=== PATIENT | male | born 1945 | race Caucasian/White ===

== ENCOUNTER 2017-02-08 18:03 | Inpatient (IN) | payer MEDICARE ==
[~2017-02-08] VITALS: Ht 180.3 cm; Wt 127.1 kg
[~2017-02-08 18:03] MED LIST: ALBU8.5H3 INH; AMLO5TAB2 PO; ASPI-496 PO; ATOR40TA78 PO; ESCI20TA PO; FLUT16SP NAS; GABA-827 PO; ISOS30TA8 PO; LISI1TAB7 PO; METF500T4 PO; NITR0.4T8 SL; PRAS10TA4 PO; TICA90TA PO; ZOLP10TA PO; ZOLP10TA5 PO
[2017-02-08] MEDS ORDERED: MORPHINE SULFATE 4 MG/ML, 1ML ONE (18:54)
[2017-02-08] MEDS ORDERED: ASPIRIN 81 MG TABLET CHEW ONE (18:55)
[2017-02-08] MEDS ORDERED: NITROGLYCERIN OINT 2%, 1GM TP ONE ×2 (18:55→19:00)
[2017-02-08] MEDS ORDERED: ONDANSETRON 2MG/ML, 2ML ONE (18:55)
[2017-02-08] MEDS: ASPIRIN 81 MG TABLET CHEW PO ONE ×2 (18:59→19:00)
[2017-02-08] MEDS ORDERED: MORPHINE SULFATE 4 MG/ML, 1ML IVPush PRN ×2 (19:00→20:30)
[2017-02-08] MEDS ORDERED: ONDANSETRON 2MG/ML, 2ML IVPush ONE (19:00)
[2017-02-08] MEDS ORDERED: SODIUM CHLORIDE FLUSH 10ML SYR IVF ONE (19:00)
[2017-02-08 19:12] LABS: ASPARTATE AMINO TRANSFERASE 46 U/L (15-37); BLOOD UREA NITROGEN 15 mg/dL (7-18)
[2017-02-08 19:18] LABS: IS PT STATUS REG ER OR PRE ER? YES
[2017-02-08] MEDS ORDERED: PRAS10TA4 PO (19:27)
[2017-02-08] MEDS ORDERED: ZOLPIDEM 10MG TABLET PO PRN (20:30)
[2017-02-08] MEDS ORDERED: ACETAMINOPHEN 325 MG TABLET PO PRN (20:30)
[2017-02-08] MEDS ORDERED: BISACODYL 10 MG SUPP PR PRN (20:30)
[2017-02-08] MEDS ORDERED: ONDANSETRON 2MG/ML, 2ML IVP PRN (20:30)
[2017-02-08] MEDS ORDERED: NITROGLYCERIN 0.4 MG BOTTLE (25 TABS) SL PRN (20:30)
[2017-02-08] MEDS ORDERED: SODIUM CHLORIDE FLUSH 10ML SYR IVF SCH (21:00)
[2017-02-08] MEDS ORDERED: AMLODIPINE 5 MG TABLET PO SCH (21:00)
[2017-02-08] MEDS ORDERED: metFORMIN 500 MG TABLET PO SCH (21:00)
[2017-02-08 21:53] VITALS: BP 166/69
[2017-02-08] MEDS ORDERED: HEPARIN 5,000 UNITS/ML, 1ML IV ONE (22:30)
[2017-02-08] MEDS ORDERED: HEPARIN 5,000 UNITS/ML, 1ML IV PRN (22:30)
[2017-02-08] MEDS ORDERED: HEPARIN 25,000 UNITS/500ML PMX 500 ML IV PRN ×2 (22:30)
[2017-02-08] MEDS ORDERED: NITROGLYCERIN/D5W PMX 250 ML IV PRN (22:30)
[2017-02-08 22:43] VITALS: BP 136/59
[2017-02-08] MEDS ORDERED: ZOLPIDEM 5MG TABLET ONE (23:22)
[2017-02-08] MEDS ORDERED: LORATADINE 10 MG TABLET PO ONE (23:30)
[2017-02-09] MEDS: ATORVASTATIN 80 MG TABLET PO SCH ×2 (00:04→21:28)
[2017-02-09] MEDS: GABAPENTIN 400 MG CAPSULE PO SCH ×3 (00:04→21:28)
[2017-02-09] MEDS ORDERED: DO NOT GIVE MC SCH (00:30)
[2017-02-09] MEDS ORDERED: CHLORHEXIDINE MOUTHWASH 15 ML UDC MM SCH (00:30)
[2017-02-09] MEDS ORDERED: ALBUMIN HUMAN 5% 500 ML IV ONE (00:30)
[2017-02-09 01:28] LABS: IS PT STATUS REG ER OR PRE ER? NO
[2017-02-09] MEDS: ALBUTEROL/IPRATROPIUM 2.5MG/0.5MG, 3 ML NPPB PRN (03:10)
[2017-02-09] MEDS ORDERED: ALBUTEROL/IPRATROPIUM 2.5MG/0.5MG, 3 ML ONE (03:16)
[2017-02-09 05:00] VITALS: BP_SYST 128; BP_SYST 131; BP_DIAS 59; BP_DIAS 62
[2017-02-09] MEDS ORDERED: METOPROLOL TARTRATE 25 MG TABLET PO ONE (05:00)
[2017-02-09] MEDS: MUPIROCIN OINT 2%, 22GM TP SCH ×2 (05:11→21:28)
[2017-02-09] MEDS: INSULIN ASPART 100 UNITS/ML, PEN SQ-INSULIN SCH (05:35)
[2017-02-09] MEDS ORDERED: ALBUTEROL/IPRATROPIUM 2.5MG/0.5MG, 3 ML NPPB SCH (07:00)
[2017-02-09] MEDS ORDERED: MIDAZOLAM 10MG/2 ML ONE (07:10)
[2017-02-09] MEDS ORDERED: FENTANYL PF 1000 MCG/20ML ONE (07:10)
[2017-02-09] MEDS ORDERED: POTASSIUM CHLORIDE 80 MEQ, SODIUM BICARBONATE 8.4% 10 MEQ, MAGNESIUM SULFATE 0.5 GM, LI... IV PRN (07:30)
[2017-02-09] MEDS ORDERED: REGULAR INSULIN 62.5 UNITS in SODIUM CHLORIDE 0.9% 249.375 ML IV PRN (07:30)
[2017-02-09] MEDS ORDERED: VANCOMYCIN 1,800 MG in SODIUM CHLORIDE 0.9% 250 ML IV PRN (07:30)
[2017-02-09] MEDS ORDERED: DEXMEDETOMIDINE 200 MCG in SODIUM CHLORIDE 0.9% 48 ML IV SCH (07:30)
[2017-02-09] MEDS ORDERED: CEFUROXIME 1.5 GM in SODIUM CHLORIDE 0.9% 50 ML IVPB PRN (07:30)
[2017-02-09] MEDS ORDERED: PHENYLEPHRINE 10 MG in SODIUM CHLORIDE 0.9% 249 ML IV PRN (07:30)
[2017-02-09] MEDS ORDERED: EPINEPHRINE 2 MG in SODIUM CHLORIDE 0.9% 248 ML IV SCH (07:30)
[2017-02-09] MEDS ORDERED: MANNITOL PMX 20% 500 ML IVPB PRN (07:30)
[2017-02-09 07:31] LABS: ASPARTATE AMINO TRANSFERASE 55 U/L (15-37); BLOOD UREA NITROGEN 13 mg/dL (7-18)
[2017-02-09 07:40] LABS: IS PT STATUS REG ER OR PRE ER? NO
[2017-02-09] MEDS ORDERED: PRASUGREL 10 MG TABLET PO SCH (09:00)
[2017-02-09] MEDS ORDERED: SODIUM CHLORIDE FLUSH 10ML SYR IVF SCH (09:00)
[2017-02-09] MEDS ORDERED: HYDROCHLOROTHIAZIDE 25 MG TABLET PO SCH (09:00)
[2017-02-09] MEDS: CITALOPRAM 20 MG TABLET PO SCH (09:00)
[2017-02-09] MEDS ORDERED: ASPIRIN 81 MG TABLET EC PO SCH (09:00)
[2017-02-09] MEDS ORDERED: LISINOPRIL 20 MG TABLET PO SCH (09:00)
[2017-02-09] MEDS ORDERED: ISOSORBIDE MONONITRATE ER 30 MG TABLET PO SCH (09:00)
[2017-02-09] MEDS ORDERED: DESMOPRESSIN 28 MCG in SODIUM CHLORIDE 0.9% 50 ML IVPB ONE (11:30)
[2017-02-09] MEDS ORDERED: PROTAMINE SULFATE 10 MG/ML, 25ML ONE (11:49)
[2017-02-09] MEDS ORDERED: CALCIUM CHLORIDE 10%, 10ML SYR ONE (11:49)
[2017-02-09] MEDS ORDERED: PAPAVERINE 30 MG/ML, 2ML ONE (11:50)
[2017-02-09] MEDS ORDERED: AMINOCAPROIC ACID 250 MG/ML, 20ML ONE (11:50)
[2017-02-09] MEDS ORDERED: SODIUM BICARBONATE 1 MEQ/ML, 50ML VIAL ONE (11:50)
[2017-02-09] MEDS ORDERED: ALBUMIN HUMAN 25% 50 ML ONE (11:50)
[2017-02-09] MEDS ORDERED: HEPARIN 1,000 UNITS/ML, 30ML ONE (11:50)
[2017-02-09] MEDS ORDERED: LIDOCAINE 2% 100MG/5ML SYRINGE ONE (11:50)
[2017-02-09] MEDS ORDERED: DOBUTAMINE 250 MG in SODIUM CHLORIDE 0.9% 230 ML IV PRN (12:17)
[2017-02-09] MEDS ORDERED: SODIUM CHLORIDE 0.9% 1,000 ML IV ONE (12:17)
[2017-02-09] MEDS ORDERED: SODIUM CHLORIDE 0.9% 1,000 ML IV PRN (12:17)
[2017-02-09] MEDS ORDERED: NITROGLYCERIN/D5W PMX 250 ML IV PRN (12:17)
[2017-02-09] MEDS ORDERED: CLEVIDIPINE 50 ML IV PRN (12:17)
[2017-02-09] MEDS ORDERED: ACETAMINOPHEN 325 MG TABLET PO PRN (12:30)
[2017-02-09] MEDS ORDERED: BISACODYL 5 MG EC TABLET PO PRN (12:30)
[2017-02-09] MEDS ORDERED: SODIUM BICARB 8.4%, 50ML SYRINGE IV PRN (12:30)
[2017-02-09] MEDS ORDERED: MEPERIDINE/PF 25MG/0.5ML IVPush PRN (12:30)
[2017-02-09] MEDS ORDERED: BISACODYL 10 MG SUPP PR PRN (12:30)
[2017-02-09] MEDS ORDERED: morphine SULFATE 10 MG/ML, 1ML IVPush PRN (12:30)
[2017-02-09] MEDS ORDERED: PROCHLORPERAZINE 5 MG/ML, 2ML IVPush PRN (12:30)
[2017-02-09] MEDS ORDERED: ACETAMINOPHEN 650 MG SUPP PR PRN (12:30)
[2017-02-09] MEDS: KSCALE TO 4.5 IV SCH ×2 (12:30→18:30)
[2017-02-09] MEDS ORDERED: DEXTROSE 4 GM TAB.CHEW PO PRN (12:30)
[2017-02-09] MEDS ORDERED: DEXTROSE 50%, 50ML SYRINGE IVPush PRN (12:30)
[2017-02-09] MEDS ORDERED: MIDAZOLAM 1 MG/ML, 5ML IVPush PRN (12:30)
[2017-02-09] MEDS ORDERED: LACTATED RINGERS 500 ML IVBOLUS PRN (12:30)
[2017-02-09] MEDS ORDERED: GLUCAGON 1 MG IM PRN (12:30)
[2017-02-09 12:45] LABS: ABG COLLECTION SITE ARTERIAL LINE; FIO2 60 %
[2017-02-09] MEDS: MAGNESIUM SULFATE 1 GM in SODIUM CHLORIDE 0.9% 50 ML IVPB SCH (13:40)
[2017-02-09] MEDS: SODIUM BICARBONATE 1 MEQ/ML, 50ML VIAL IV PRN ×3 (14:05→17:12)
[2017-02-09] MEDS: DEXMEDETOMIDINE 200 MCG in SODIUM CHLORIDE 0.9% 48 ML IV PRN ×2 (15:06→17:52)
[2017-02-09 16:47] LABS: ABG COLLECTION SITE ARTERIAL LINE
[2017-02-09] MEDS: PHENYLEPHRINE 10 MG in SODIUM CHLORIDE 0.9% 249 ML IV PRN ×2 (17:12→21:57)
[2017-02-09 17:46] LABS: ABG COLLECTION SITE ARTERIAL LINE
[2017-02-09] MEDS: OXYcodone IR 5MG TABLET PO PRN (17:50)
[2017-02-09] MEDS: REGULAR INSULIN 62.5 UNITS in SODIUM CHLORIDE 0.9% 249.375 ML IV PRN (17:52)
[2017-02-09] MEDS: EPINEPHRINE 2 MG in SODIUM CHLORIDE 0.9% 248 ML IV PRN (17:53)
[2017-02-09] MEDS ORDERED: VANCOMYCIN 1,700 MG in SODIUM CHLORIDE 0.9% 250 ML IVPB SCH ×2 (19:00→22:00)
[2017-02-09] MEDS: PROPOFOL 100 ML IV PRN (19:24)
[2017-02-09] MEDS ORDERED: CEFUROXIME 1.5 GM in SODIUM CHLORIDE 0.9% 50 ML IVPB SCH (19:30)
[2017-02-09 20:50] LABS: ABG COLLECTION SITE ARTERIAL LINE
[2017-02-09] MEDS: DOCUSATE 100 MG CAPSULE PO SCH (21:00)
[2017-02-09] MEDS: MUPIROCIN OINT 2%, 22GM NAS SCH (21:20)
[2017-02-09] MEDS: SODIUM CHLORIDE FLUSH 10ML SYR IVF SCH (21:28)
[2017-02-09] MEDS: CEFUROXIME 1.5 GM in SODIUM CHLORIDE 0.9% 50 ML IVPB SCH (22:09)
[2017-02-09] MEDS: ALBUTEROL/IPRATROPIUM 2.5MG/0.5MG, 3 ML INLINE SCH (23:33)
[2017-02-10] MEDS: HYDROcodone/APAP 10/325 MG TABLET PO PRN ×6 (00:26→23:29)
[2017-02-10] MEDS: KSCALE TO 4.5 IV SCH ×4 (00:30→18:30)
[2017-02-10] MEDS: EPINEPHRINE 2 MG in SODIUM CHLORIDE 0.9% 248 ML IV PRN (00:49)
[2017-02-10] MEDS: PHENYLEPHRINE 10 MG in SODIUM CHLORIDE 0.9% 249 ML IV PRN ×2 (01:15→04:53)
[2017-02-10] MEDS: PROPOFOL 100 ML IV PRN (02:38)
[2017-02-10] MEDS: ALBUTEROL/IPRATROPIUM 2.5MG/0.5MG, 3 ML INLINE SCH ×2 (02:52→06:58)
[2017-02-10 04:00] VITALS: BP 125/58
[2017-02-10 05:00] LABS: ABG COLLECTION SITE ARTERIAL LINE
[2017-02-10 05:16] LABS: BLOOD UREA NITROGEN 21 mg/dL (7-18)
[2017-02-10] MEDS: DOCUSATE 100 MG CAPSULE PO SCH ×2 (07:45→20:50)
[2017-02-10] MEDS: CITALOPRAM 20 MG TABLET PO SCH (07:45)
[2017-02-10] MEDS: ASPIRIN 81 MG TABLET EC PO SCH (07:45)
[2017-02-10] MEDS: SODIUM CHLORIDE FLUSH 10ML SYR IVF SCH ×2 (07:45→20:51)
[2017-02-10] MEDS: GABAPENTIN 400 MG CAPSULE PO SCH ×2 (07:45→20:50)
[2017-02-10] MEDS: PANTOPRAZOLE 40 MG IV IVPush SCH (07:45)
[2017-02-10] MEDS: MUPIROCIN OINT 2%, 22GM NAS SCH ×2 (07:46→20:50)
[2017-02-10] MEDS: MUPIROCIN OINT 2%, 22GM TP SCH ×2 (07:46→20:51)
[2017-02-10] MEDS ORDERED: CALCIUM CHLORIDE 13.6 MEQ in SODIUM CHLORIDE 0.9% 100 ML IV ONE (08:30)
[2017-02-10] MEDS: CEFUROXIME 1.5 GM in SODIUM CHLORIDE 0.9% 50 ML IVPB SCH (09:46)
[2017-02-10] MEDS ORDERED: DAPTOMYCIN 470 MG in SODIUM CHLORIDE 0.9% 100 ML IV SCH (10:00)
[2017-02-10] MEDS: CEFTAROLINE 600 MG in SODIUM CHLORIDE 0.9% 100 ML IV SCH ×2 (11:07→23:29)
[2017-02-10] MEDS: ALBUTEROL/IPRATROPIUM 2.5MG/0.5MG, 3 ML NPPB SCH ×3 (12:09→23:45)
[2017-02-10] MEDS: MAGNESIUM SULFATE 1 GM in SODIUM CHLORIDE 0.9% 50 ML IVPB SCH (12:53)
[2017-02-10] MEDS: CHLORHEXIDINE MOUTHWASH 15 ML UDC MM SCH (12:55)
[2017-02-10] MEDS: REGULAR INSULIN 62.5 UNITS in SODIUM CHLORIDE 0.9% 249.375 ML IV PRN (18:06)
[2017-02-10] MEDS: INSULIN ASPART 100 UNITS/ML, PEN SQ-INSULIN PRN ×2 (19:25→20:51)
[2017-02-10] MEDS: ATORVASTATIN 80 MG TABLET PO SCH (20:50)
[2017-02-10] MEDS: METOPROLOL TARTRATE 25 MG TABLET PO/NG SCH (20:51)
[2017-02-11] MEDS: CHLORHEXIDINE MOUTHWASH 15 ML UDC MM SCH ×2 (00:49→17:31)
[2017-02-11] MEDS: KSCALE TO 4.5 IV SCH (00:49)
[2017-02-11 04:00] VITALS: BP 110/50
[2017-02-11] MEDS: HYDROcodone/APAP 10/325 MG TABLET PO PRN ×3 (04:25→18:26)
[2017-02-11] MEDS: ALBUTEROL/IPRATROPIUM 2.5MG/0.5MG, 3 ML NPPB SCH ×5 (04:28→19:37)
[2017-02-11 05:03] LABS: ABG COLLECTION SITE RIGHT RADIAL; COLLATERAL CIRCULATION TESTING NORMAL
[2017-02-11 05:26] LABS: BLOOD UREA NITROGEN 24 mg/dL (7-18)
[2017-02-11] MEDS ORDERED: POTASSIUM CHLORIDE 10 MEQ TABLET.ER PO SCH (08:00)
[2017-02-11] MEDS: metFORMIN 500 MG TABLET PO SCH ×2 (08:07→17:34)
[2017-02-11] MEDS: FUROSEMIDE 20 MG/2 ML IV SCH ×2 (08:07→17:34)
[2017-02-11] MEDS: PANTOPRAZOLE 40 MG IV IVPush SCH (08:08)
[2017-02-11] MEDS: DOCUSATE 100 MG CAPSULE PO SCH ×2 (08:08→19:44)
[2017-02-11] MEDS: ASPIRIN 81 MG TABLET EC PO SCH (08:09)
[2017-02-11] MEDS: CITALOPRAM 20 MG TABLET PO SCH (08:09)
[2017-02-11] MEDS: PRASUGREL 10 MG TABLET PO SCH (08:09)
[2017-02-11] MEDS: GABAPENTIN 400 MG CAPSULE PO SCH ×2 (08:09→19:45)
[2017-02-11] MEDS: METOPROLOL TARTRATE 25 MG TABLET PO/NG SCH ×2 (08:10→19:44)
[2017-02-11] MEDS: SODIUM CHLORIDE FLUSH 10ML SYR IVF SCH ×2 (08:13→19:45)
[2017-02-11] MEDS: MUPIROCIN OINT 2%, 22GM TP SCH ×2 (08:13→20:01)
[2017-02-11] MEDS: MUPIROCIN OINT 2%, 22GM NAS SCH ×2 (10:54→19:45)
[2017-02-11] MEDS: CEFTAROLINE 600 MG in SODIUM CHLORIDE 0.9% 100 ML IV SCH ×2 (10:55→23:30)
[2017-02-11] MEDS ORDERED: AMIODARONE 900 MG in DEXTROSE 5% 482 ML IV PRN (12:00)
[2017-02-11] MEDS ORDERED: AMIODARONE 150 MG in DEXTROSE 5% 100 ML IV ONE (12:00)
[2017-02-11] MEDS ORDERED: FILTER 0.22 MICRON FOR AMIODARONE IV PRN (12:30)
[2017-02-11] MEDS: MAGNESIUM SULFATE 1 GM in SODIUM CHLORIDE 0.9% 50 ML IVPB SCH (12:54)
[2017-02-11] MEDS: OXYcodone IR 5MG TABLET PO PRN ×2 (12:54→19:44)
[2017-02-11] MEDS: ENOXAPARIN 40 MG/0.4 ML SQ SCH (17:33)
[2017-02-11] MEDS: ATORVASTATIN 80 MG TABLET PO SCH (19:44)
[2017-02-12] MEDS: CHLORHEXIDINE MOUTHWASH 15 ML UDC MM SCH (01:32)
[2017-02-12] MEDS: HYDROcodone/APAP 10/325 MG TABLET PO PRN ×3 (01:52→19:56)
[2017-02-12 04:00] VITALS: BP 126/66
[2017-02-12 05:03] LABS: BLOOD UREA NITROGEN 27 mg/dL (7-18)
[2017-02-12] MEDS: ALBUTEROL/IPRATROPIUM 2.5MG/0.5MG, 3 ML NPPB SCH ×4 (06:45→21:20)
[2017-02-12] MEDS: PANTOPRAZOLE 40 MG IV IVPush SCH (08:05)
[2017-02-12] MEDS: MUPIROCIN OINT 2%, 22GM NAS SCH ×3 (08:05→21:04)
[2017-02-12] MEDS: CITALOPRAM 20 MG TABLET PO SCH (08:05)
[2017-02-12] MEDS: ASPIRIN 81 MG TABLET EC PO SCH (08:06)
[2017-02-12] MEDS: DOCUSATE 100 MG CAPSULE PO SCH ×2 (08:06→21:04)
[2017-02-12] MEDS: GABAPENTIN 400 MG CAPSULE PO SCH ×2 (08:06→21:04)
[2017-02-12] MEDS: METOPROLOL TARTRATE 25 MG TABLET PO/NG SCH ×2 (08:07→21:05)
[2017-02-12] MEDS: metFORMIN 500 MG TABLET PO SCH ×2 (08:10→16:58)
[2017-02-12] MEDS: SODIUM CHLORIDE FLUSH 10ML SYR IVF SCH ×2 (08:11→21:05)
[2017-02-12] MEDS: PRASUGREL 10 MG TABLET PO SCH (08:12)
[2017-02-12] MEDS: MUPIROCIN OINT 2%, 22GM TP SCH ×2 (08:16→21:00)
[2017-02-12] MEDS: AMIODARONE 200 MG TABLET PO SCH ×2 (08:31→21:04)
[2017-02-12] MEDS ORDERED: CEFTRIAXONE PMX 2GM/50ML 50 ML IV SCH (10:30)
[2017-02-12] MEDS: FUROSEMIDE 40 MG/4 ML IV SCH ×2 (11:38→16:58)
[2017-02-12] MEDS ORDERED: ALBUTEROL/IPRATROPIUM 2.5MG/0.5MG, 3 ML INLINE SCH (12:00)
[2017-02-12] MEDS: INSULIN ASPART 100 UNITS/ML, PEN SQ-INSULIN PRN ×2 (12:27→17:24)
[2017-02-12] MEDS: ENOXAPARIN 40 MG/0.4 ML SQ SCH (16:57)
[2017-02-12] MEDS: ONDANSETRON 2MG/ML, 2ML IVPush PRN (19:54)
[2017-02-12] MEDS ORDERED: GADOBUTROL 10 MMOL/10 ML PFS ONE (20:20)
[2017-02-12] MEDS: ATORVASTATIN 80 MG TABLET PO SCH (21:04)
[2017-02-13 04:00] VITALS: BP 128/70
[2017-02-13 04:57] LABS: BLOOD UREA NITROGEN 30 mg/dL (7-18)
[2017-02-13] MEDS: ALBUTEROL/IPRATROPIUM 2.5MG/0.5MG, 3 ML NPPB SCH ×4 (05:01→20:00)
[2017-02-13] MEDS: HYDROcodone/APAP 10/325 MG TABLET PO PRN ×3 (05:02→18:43)
[2017-02-13] MEDS ORDERED: AMIODARONE 150 MG in DEXTROSE 5% 100 ML IV ONE ×2 (05:30→13:30)
[2017-02-13] MEDS: AMIODARONE 900 MG in DEXTROSE 5% 482 ML IV PRN ×2 (05:32→22:31)
[2017-02-13] MEDS: ONDANSETRON 2MG/ML, 2ML IVPush PRN (06:14)
[2017-02-13] MEDS: FUROSEMIDE 40 MG/4 ML IV SCH ×2 (07:40→17:16)
[2017-02-13] MEDS: PANTOPROZOLE 40MG TABLET PO SCH (07:40)
[2017-02-13] MEDS: metFORMIN 500 MG TABLET PO SCH ×2 (07:40→17:16)
[2017-02-13] MEDS: SODIUM CHLORIDE FLUSH 10ML SYR IVF SCH (07:44)
[2017-02-13] MEDS: INSULIN ASPART 100 UNITS/ML, PEN SQ-INSULIN SCH ×4 (08:47→20:02)
[2017-02-13] MEDS ORDERED: CEFUROXIME 1.5 GM in SODIUM CHLORIDE 0.9% 50 ML IVPB SCH (09:00)
[2017-02-13] MEDS: MUPIROCIN OINT 2%, 22GM TP SCH ×2 (09:00→21:00)
[2017-02-13] MEDS ORDERED: VANCOMYCIN 1,700 MG in SODIUM CHLORIDE 0.9% 250 ML IVPB SCH (09:00)
[2017-02-13] MEDS: ASPIRIN 81 MG TABLET EC PO SCH (09:12)
[2017-02-13] MEDS: DOCUSATE 100 MG CAPSULE PO SCH ×2 (09:12→20:00)
[2017-02-13] MEDS: GABAPENTIN 400 MG CAPSULE PO SCH ×2 (09:12→20:00)
[2017-02-13] MEDS: METOPROLOL TARTRATE 25 MG TABLET PO/NG SCH ×2 (09:12→20:01)
[2017-02-13] MEDS: CITALOPRAM 20 MG TABLET PO SCH (09:13)
[2017-02-13] MEDS: MUPIROCIN OINT 2%, 22GM NAS SCH ×2 (09:13→20:01)
[2017-02-13] MEDS: PRASUGREL 10 MG TABLET PO SCH (09:14)
[2017-02-13] MEDS: methylPREDNISolone SOD SUCC 40 MG/ML IV SCH ×2 (11:40→17:16)
[2017-02-13] MEDS: ENOXAPARIN 40 MG/0.4 ML SQ SCH (17:16)
[2017-02-13] MEDS ORDERED: CEFTRIAXONE 2 GM in SODIUM CHLORIDE 0.9% 50 ML IV SCH (19:30)
[2017-02-13] MEDS: CEFTRIAXONE PMX 2GM/50ML 50 ML IV SCH (20:00)
[2017-02-13] MEDS: ATORVASTATIN 80 MG TABLET PO SCH (20:00)
[2017-02-13] MEDS ORDERED: FILTER 0.22 MICRON FOR AMIODARONE IV PRN (21:30)
[2017-02-14] MEDS: methylPREDNISolone SOD SUCC 40 MG/ML IV SCH ×4 (00:15→18:17)
[2017-02-14] MEDS: SODIUM CHLORIDE FLUSH 10ML SYR IVF SCH ×3 (00:15→20:23)
[2017-02-14 03:27] LABS: BLOOD UREA NITROGEN 31 mg/dL (7-18)
[2017-02-14] MEDS: INSULIN ASPART 100 UNITS/ML, PEN SQ-INSULIN SCH (04:24)
[2017-02-14 05:35] VITALS: BP 132/80
[2017-02-14] MEDS: MUPIROCIN OINT 2%, 22GM NAS SCH (07:36)
[2017-02-14] MEDS: ALBUTEROL/IPRATROPIUM 2.5MG/0.5MG, 3 ML NPPB SCH ×4 (07:45→21:28)
[2017-02-14] MEDS: FUROSEMIDE 40 MG/4 ML IV SCH ×2 (08:10→18:18)
[2017-02-14] MEDS ORDERED: PROPOFOL 10 MG/ML, 20ML ONE (08:57)
[2017-02-14] MEDS ORDERED: FENTANYL PF 100 MCG/2ML ONE (09:52)
[2017-02-14] MEDS: metFORMIN 500 MG TABLET PO SCH ×2 (10:51→18:20)
[2017-02-14] MEDS: ASPIRIN 81 MG TABLET EC PO SCH (10:51)
[2017-02-14] MEDS: CITALOPRAM 20 MG TABLET PO SCH (10:51)
[2017-02-14] MEDS: METOPROLOL TARTRATE 25 MG TABLET PO/NG SCH ×2 (10:51→20:23)
[2017-02-14] MEDS: PANTOPROZOLE 40MG TABLET PO SCH (10:51)
[2017-02-14] MEDS: GABAPENTIN 400 MG CAPSULE PO SCH ×2 (10:52→20:23)
[2017-02-14] MEDS: PRASUGREL 10 MG TABLET PO SCH (10:52)
[2017-02-14] MEDS: MUPIROCIN OINT 2%, 22GM TP SCH ×2 (10:52→20:25)
[2017-02-14] MEDS: DOCUSATE 100 MG CAPSULE PO SCH ×2 (10:52→20:23)
[2017-02-14] MEDS ORDERED: FILTER 0.22 MICRON FOR AMIODARONE IV PRN (17:00)
[2017-02-14] MEDS ORDERED: AMIODARONE 900 MG in DEXTROSE 5% 482 ML IV PRN (17:00)
[2017-02-14] MEDS: ENOXAPARIN 40 MG/0.4 ML SQ SCH (18:19)
[2017-02-14] MEDS: CEFTRIAXONE PMX 2GM/50ML 50 ML IV SCH (20:22)
[2017-02-14] MEDS: ATORVASTATIN 80 MG TABLET PO SCH (20:23)
[2017-02-15] MEDS: methylPREDNISolone SOD SUCC 40 MG/ML IV SCH ×2 (00:04→05:14)
[2017-02-15 04:00] VITALS: BP 117/65
[2017-02-15 04:45] LABS: BLOOD UREA NITROGEN 38 mg/dL (7-18)
[2017-02-15] MEDS: ALBUTEROL/IPRATROPIUM 2.5MG/0.5MG, 3 ML NPPB SCH ×4 (07:00→19:35)
[2017-02-15] MEDS: SODIUM CHLORIDE FLUSH 10ML SYR IVF SCH ×2 (09:00→21:24)
[2017-02-15] MEDS: PANTOPROZOLE 40MG TABLET PO SCH (09:09)
[2017-02-15] MEDS: FUROSEMIDE 40 MG/4 ML IV SCH ×2 (09:09→16:48)
[2017-02-15] MEDS: PRASUGREL 10 MG TABLET PO SCH (09:09)
[2017-02-15] MEDS: DOCUSATE 100 MG CAPSULE PO SCH ×2 (09:10→21:03)
[2017-02-15] MEDS: ASPIRIN 81 MG TABLET EC PO SCH (09:10)
[2017-02-15] MEDS: METOPROLOL TARTRATE 25 MG TABLET PO/NG SCH ×2 (09:10→21:43)
[2017-02-15] MEDS: CITALOPRAM 20 MG TABLET PO SCH (09:10)
[2017-02-15] MEDS: GABAPENTIN 400 MG CAPSULE PO SCH ×2 (09:10→21:42)
[2017-02-15] MEDS: metFORMIN 500 MG TABLET PO SCH ×2 (09:11→16:47)
[2017-02-15] MEDS: MUPIROCIN OINT 2%, 22GM TP SCH ×2 (09:12→21:03)
[2017-02-15] MEDS: AMIODARONE 200 MG TABLET PO SCH ×2 (15:53→21:42)
[2017-02-15] MEDS: ENOXAPARIN 40 MG/0.4 ML SQ SCH (15:54)
[2017-02-15 17:49] VITALS: BP 154/75
[2017-02-15 19:55] VITALS: BP 134/67
[2017-02-15] MEDS: CEFTRIAXONE PMX 2GM/50ML 50 ML IV SCH (21:24)
[2017-02-15] MEDS: OXYcodone IR 5MG TABLET PO PRN (21:24)
[2017-02-15] MEDS: INSULIN ASPART 100 UNITS/ML, PEN SQ-INSULIN PRN (21:41)
[2017-02-15] MEDS: ATORVASTATIN 80 MG TABLET PO SCH (21:42)
[2017-02-16 02:01] VITALS: BP 133/75
[2017-02-16] MEDS: OXYcodone IR 5MG TABLET PO PRN ×10 (03:13→23:56)
[2017-02-16 05:10] LABS: BLOOD UREA NITROGEN 37 mg/dL (7-18)
[2017-02-16 05:41] VITALS: BP 124/76
[2017-02-16 07:14] VITALS: BP 146/74
[2017-02-16] MEDS: ALBUTEROL/IPRATROPIUM 2.5MG/0.5MG, 3 ML NPPB SCH ×4 (07:45→20:10)
[2017-02-16] MEDS: ASPIRIN 81 MG TABLET EC PO SCH (07:55)
[2017-02-16] MEDS: METOPROLOL TARTRATE 25 MG TABLET PO/NG SCH ×2 (07:55→20:44)
[2017-02-16] MEDS: PRASUGREL 10 MG TABLET PO SCH (07:55)
[2017-02-16] MEDS: FUROSEMIDE 40 MG/4 ML IV SCH ×2 (07:55→16:24)
[2017-02-16] MEDS: GABAPENTIN 400 MG CAPSULE PO SCH ×2 (07:55→20:44)
[2017-02-16] MEDS: CITALOPRAM 20 MG TABLET PO SCH (07:56)
[2017-02-16] MEDS: AMIODARONE 200 MG TABLET PO SCH ×2 (07:56→20:43)
[2017-02-16] MEDS: MUPIROCIN OINT 2%, 22GM TP SCH ×2 (07:56→20:44)
[2017-02-16] MEDS: metFORMIN 500 MG TABLET PO SCH ×2 (07:56→16:23)
[2017-02-16] MEDS: HYDROcodone/APAP 10/325 MG TABLET PO PRN (07:56)
[2017-02-16] MEDS: PANTOPROZOLE 40MG TABLET PO SCH (07:56)
[2017-02-16] MEDS: SODIUM CHLORIDE FLUSH 10ML SYR IVF SCH ×2 (07:56→20:44)
[2017-02-16] MEDS: DOCUSATE 100 MG CAPSULE PO SCH ×2 (07:56→20:42)
[2017-02-16 09:56] VITALS: BP 109/68
[2017-02-16] MEDS: LISINOPRIL 5 MG TABLET PO SCH ×2 (09:56→20:43)
[2017-02-16] MEDS: INSULIN ASPART 100 UNITS/ML, PEN SQ-INSULIN PRN ×3 (12:24→22:58)
[2017-02-16 13:29] VITALS: BP 106/66
[2017-02-16] MEDS: ENOXAPARIN 40 MG/0.4 ML SQ SCH (16:24)
[2017-02-16 20:00] VITALS: BP 131/78
[2017-02-16] MEDS: ATORVASTATIN 80 MG TABLET PO SCH (20:42)
[2017-02-16] MEDS: CEFTRIAXONE PMX 2GM/50ML 50 ML IV SCH (20:44)
[2017-02-17 00:02] VITALS: BP 118/73
[2017-02-17] MEDS: OXYcodone IR 5MG TABLET PO PRN (04:58)
[2017-02-17] MEDS: ALBUTEROL/IPRATROPIUM 2.5MG/0.5MG, 3 ML NPPB SCH ×4 (05:45→20:01)
[2017-02-17 05:53] LABS: BLOOD UREA NITROGEN 36 mg/dL (7-18)
[2017-02-17] MEDS: ALBUTEROL/IPRATROPIUM 2.5MG/0.5MG, 3 ML NPPB PRN (06:00)
[2017-02-17 08:18] VITALS: BP 97/61
[2017-02-17] MEDS: PANTOPROZOLE 40MG TABLET PO SCH (08:27)
[2017-02-17] MEDS: FUROSEMIDE 40 MG/4 ML IV SCH ×2 (08:27→16:54)
[2017-02-17] MEDS: metFORMIN 500 MG TABLET PO SCH ×2 (08:27→16:54)
[2017-02-17] MEDS: PRASUGREL 10 MG TABLET PO SCH (08:28)
[2017-02-17] MEDS: CITALOPRAM 20 MG TABLET PO SCH (08:28)
[2017-02-17] MEDS: ASPIRIN 81 MG TABLET EC PO SCH (08:28)
[2017-02-17] MEDS: AMIODARONE 200 MG TABLET PO SCH ×2 (08:28→19:42)
[2017-02-17] MEDS: GABAPENTIN 400 MG CAPSULE PO SCH ×2 (08:28→19:42)
[2017-02-17] MEDS: METOPROLOL TARTRATE 25 MG TABLET PO/NG SCH ×2 (08:29→19:43)
[2017-02-17] MEDS: LISINOPRIL 5 MG TABLET PO SCH ×2 (08:29→19:43)
[2017-02-17] MEDS: DOCUSATE 100 MG CAPSULE PO SCH ×2 (08:30→19:44)
[2017-02-17] MEDS: SODIUM CHLORIDE FLUSH 10ML SYR IVF SCH ×2 (08:30→19:41)
[2017-02-17] MEDS: MUPIROCIN OINT 2%, 22GM TP SCH ×2 (08:30→19:44)
[2017-02-17 08:33] VITALS: BP 107/62
[2017-02-17 14:40] VITALS: BP 102/58
[2017-02-17] MEDS ORDERED: INSULIN ASPART 100 UNITS/ML, PEN SQ-INSULIN SCH (16:00)
[2017-02-17] MEDS: INSULIN ASPART 100 UNITS/ML, PEN SQ-INSULIN SCH ×2 (16:00→19:43)
[2017-02-17] MEDS: ENOXAPARIN 40 MG/0.4 ML SQ SCH (16:54)
[2017-02-17 19:36] VITALS: BP 148/77
[2017-02-17] MEDS: CEFTRIAXONE PMX 2GM/50ML 50 ML IV SCH (19:41)
[2017-02-17] MEDS: ATORVASTATIN 80 MG TABLET PO SCH (19:42)
[2017-02-18] MEDS: OXYcodone IR 5MG TABLET PO PRN ×4 (00:15→11:36)
[2017-02-18 03:23] VITALS: BP 98/60
[2017-02-18 03:42] LABS: BLOOD UREA NITROGEN 36 mg/dL (7-18)
[2017-02-18] MEDS: ALBUTEROL/IPRATROPIUM 2.5MG/0.5MG, 3 ML NPPB SCH (06:36)
[2017-02-18] MEDS: INSULIN ASPART 100 UNITS/ML, PEN SQ-INSULIN SCH ×2 (07:00→11:00)
[2017-02-18] MEDS ORDERED: FUROSEMIDE 40 MG/4 ML IV SCH (07:30)
[2017-02-18 07:51] VITALS: BP 106/65
[2017-02-18] MEDS ORDERED: POTASSIUM CHLORIDE 20 MEQ TAB.ER.PRT PO ONE (08:00)
[2017-02-18] MEDS ORDERED: METO25TA35 PO/NG (08:13)
[2017-02-18] MEDS ORDERED: POTA20TA6 PO (08:13)
[2017-02-18] MEDS ORDERED: FURO-92 PO (08:13)
[2017-02-18] MEDS ORDERED: OXYC5TAB3 PO (08:13)
[2017-02-18] MEDS ORDERED: AMIO200T42 PO (08:13)
[2017-02-18] MEDS ORDERED: ENOXAPARIN 40 MG/0.4 ML SQ SCH (09:00)
[2017-02-18] MEDS: ASPIRIN 81 MG TABLET EC PO SCH (11:36)
[2017-02-18] MEDS: metFORMIN 500 MG TABLET PO SCH (11:36)
[2017-02-18] MEDS: PRASUGREL 10 MG TABLET PO SCH (11:36)
[2017-02-18] MEDS: PANTOPROZOLE 40MG TABLET PO SCH (11:36)
[2017-02-18] MEDS: GABAPENTIN 400 MG CAPSULE PO SCH (11:36)
[2017-02-18] MEDS: AMIODARONE 200 MG TABLET PO SCH (11:37)
[2017-02-18] MEDS: METOPROLOL TARTRATE 25 MG TABLET PO/NG SCH (11:37)
[2017-02-18] MEDS: LISINOPRIL 5 MG TABLET PO SCH (11:37)
[2017-02-18] MEDS: CITALOPRAM 20 MG TABLET PO SCH (11:38)
[2017-02-18] MEDS: DOCUSATE 100 MG CAPSULE PO SCH (11:38)
[2017-02-18] MEDS: SODIUM CHLORIDE FLUSH 10ML SYR IVF SCH (11:38)
[2017-02-18 13:49] VITALS: BP 108/68
[2017-02-18] MEDS ORDERED: CEFT2FRO2 IVPB (14:02)
[2017-03-10] MEDS ORDERED: CLOP75TA22 PO (10:37)
[2017-03-10] MEDS ORDERED: OXYC5CAP4 PO (10:37)
[2017-03-10] MEDS ORDERED: LISI-170 PO (10:37)
[2017-03-10] MEDS ORDERED: GABA800T2 PO (10:37)
== END 2017-02-18 14:35 | disposition home or self-care (01) | DRG 235 ==
LOC: ED 20:25 → EDIP 20:49 → 5SO 22:13 → CCU 22:16 → 5SO 02-15 17:21 → DCLOUNGE 02-18 14:00
PROVIDERS: ADMIT Family Medicine; ATTEND Family Medicine
PROC: 0HB5XZZ Excision of Chest Skin, External Approach (ICD-10-PCS; 2017-02-09)
PROC: 021109W Bypass Coronary Artery, Two Arteries from Aorta with Autologous Venous Tissue, Open Approach (ICD-10-PCS; 2017-02-09)
PROC: 06BQ4ZZ Excision of Left Saphenous Vein, Percutaneous Endoscopic Approach (ICD-10-PCS; 2017-02-09)
PROC: 06BP4ZZ Excision of Right Saphenous Vein, Percutaneous Endoscopic Approach (ICD-10-PCS; 2017-02-09)
PROC: 02100Z9 Bypass Coronary Artery, One Artery from Left Internal Mammary, Open Approach (ICD-10-PCS; principal; 2017-02-09 08:00)
PROC: 5A2204Z Restoration of Cardiac Rhythm, Single (ICD-10-PCS; 2017-02-14)
PROC: 05HB33Z Insertion of Infusion Device into Right Basilic Vein, Percutaneous Approach (ICD-10-PCS; 2017-02-15)
PROC: B54MZZA Ultrasonography of Right Upper Extremity Veins, Guidance (ICD-10-PCS; 2017-02-15)
DX: I25.110 Atherosclerotic heart disease of native coronary artery with unstable angina pectoris (principal); J96.20 Acute and chronic respiratory failure, unspecified whether with hypoxia or hypercapnia; F32.0 Major depressive disorder, single episode, mild; I48.92 Unspecified atrial flutter; J98.11 Atelectasis; E11.40 Type 2 diabetes mellitus with diabetic neuropathy, unspecified; E66.01 Morbid (severe) obesity due to excess calories; Z68.39 Body mass index [BMI] 39.0-39.9, adult; E78.5 Hyperlipidemia, unspecified; F10.10 Alcohol abuse, uncomplicated; H54.7 Unspecified visual loss; I11.9 Hypertensive heart disease without heart failure; Z90.49 Acquired absence of other specified parts of digestive tract; I48.91 Unspecified atrial fibrillation; J44.9 Chronic obstructive pulmonary disease, unspecified; K59.03 Drug induced constipation; L72.3 Sebaceous cyst; N28.9 Disorder of kidney and ureter, unspecified; R13.10 Dysphagia, unspecified; Z51.5 Encounter for palliative care; Z72.0 Tobacco use; Z95.1 Presence of aortocoronary bypass graft; Z95.5 Presence of coronary angioplasty implant and graft; Z99.81 Dependence on supplemental oxygen
CPT/HCPCS: 36415; 36569; 36600; 70450; 70553; 71010; 71020; 76937; 77001; 80048; 80053; 81003; 82040; 82330; 82800; 82803; 82810; 82947; 82962; 83036; 83735; 83880; 84132; 84295; 84484; 85014; 85018; 85025; 85049; 85347; 85520; 85610; 85651; 85730; 86140; 86850; 86900; 86923; 87070; 87075; 87081; 87176; 87205; 93005; 93308; 93312; 93321; 93325; 93880; 94002; 94003; 94150; 94640; 96374; 96375; A9585; J0690; J0696; J0697; J0712; J1100; J1644; J1650; J1815; J1940; J2250; J2405; J2704; J2720; J3010; J3370; J3475; J3480; J3490; J7620; P9045; P9047; C1751; C1760; C9113; J0171; J0282; J2270; J2370; J2440; J2920; J7030; J7050; J7060; J7512

== ENCOUNTER 2017-03-12 02:03 | Inpatient (IN) | payer MEDICARE ==
[~2017-03-12] VITALS: Ht 177.8 cm; Wt 112.6 kg
[~2017-03-12 02:03] MED LIST changes: +AMIO200T42 PO; +CEFT2FRO2 IVPB; +CLOP75TA22 PO; +FURO-92 PO; +GABA800T2 PO; +LISI-170 PO; +METO25TA35 PO/NG; +OXYC5CAP4 PO; +OXYC5TAB3 PO; +POTA20TA6 PO
[2017-03-12 03:31] LABS: ASPARTATE AMINO TRANSFERASE 27 U/L (15-37); BLOOD UREA NITROGEN 11 mg/dL (7-18)
[2017-03-12 03:39] LABS: ACETAMINOPHEN < 2 mcg/mL (10-30); IS PT STATUS REG ER OR PRE ER? YES
[2017-03-12] MEDS ORDERED: ONDANSETRON 2MG/ML, 2ML IVPush PRN (05:00)
[2017-03-12 05:11] LABS: ABG COLLECTION SITE RIGHT RADIAL; COLLATERAL CIRCULATION TESTING NORMAL
[2017-03-12] MEDS ORDERED: DOCUSATE 100 MG CAPSULE PO PRN (05:30)
[2017-03-12] MEDS ORDERED: BISACODYL 10 MG SUPP PR PRN (05:30)
[2017-03-12] MEDS ORDERED: LABETALOL 5MG/ML, 20ML IVPush PRN (05:30)
[2017-03-12] MEDS ORDERED: POLYETHYLENE GLYCOL 17 GM PACKET PO PRN (05:30)
[2017-03-12 06:50] VITALS: BP 161/79
[2017-03-12] MEDS: INSULIN ASPART 100 UNITS/ML, PEN SQ-INSULIN SCH ×4 (07:00→21:00)
[2017-03-12] MEDS: SODIUM CHLORIDE 0.9% 1,000 ML IV SCH ×3 (07:20→21:45)
[2017-03-12] MEDS: ENOXAPARIN 40 MG/0.4 ML SQ SCH (10:48)
[2017-03-12] MEDS: ASPIRIN 81 MG TABLET EC PO SCH (10:49)
[2017-03-12] MEDS: AMIODARONE 200 MG TABLET PO SCH (10:49)
[2017-03-12] MEDS: METOPROLOL TARTRATE 25 MG TABLET PO/NG SCH ×2 (10:50→21:45)
[2017-03-12] MEDS: LISINOPRIL 20 MG TABLET PO SCH (10:50)
[2017-03-12] MEDS: FUROSEMIDE 40 MG TABLET PO SCH (10:50)
[2017-03-12] MEDS: CLOPIDOGREL 75 MG TABLET PO SCH (10:50)
[2017-03-12 13:23] VITALS: BP 137/75
[2017-03-12 20:45] VITALS: BP 144/77
[2017-03-12] MEDS ORDERED: ATORVASTATIN 80 MG TABLET PO SCH (21:00)
[2017-03-13 00:38] VITALS: BP 123/75
[2017-03-13] MEDS ORDERED: TRAZODONE 50MG TABLET PO PRN (01:30)
[2017-03-13] MEDS ORDERED: OXYcodone ORAL.CONC 20 MG/ML PO ONE (03:30)
[2017-03-13] MEDS ORDERED: OXYcodone IR 5MG TABLET PO ONE (04:00)
[2017-03-13] MEDS: INSULIN ASPART 100 UNITS/ML, PEN SQ-INSULIN SCH ×2 (07:00→11:00)
[2017-03-13 07:12] VITALS: BP 126/67
[2017-03-13] MEDS: SODIUM CHLORIDE 0.9% 1,000 ML IV SCH ×2 (08:43→14:10)
[2017-03-13] MEDS: ASPIRIN 81 MG TABLET EC PO SCH (08:44)
[2017-03-13] MEDS: CLOPIDOGREL 75 MG TABLET PO SCH (08:45)
[2017-03-13] MEDS: FUROSEMIDE 40 MG TABLET PO SCH (08:45)
[2017-03-13] MEDS: LISINOPRIL 20 MG TABLET PO SCH (08:46)
[2017-03-13] MEDS: METOPROLOL TARTRATE 25 MG TABLET PO/NG SCH (08:57)
[2017-03-13] MEDS: AMIODARONE 200 MG TABLET PO SCH (08:57)
[2017-03-13] MEDS: ENOXAPARIN 40 MG/0.4 ML SQ SCH (10:55)
[2017-03-13 14:08] VITALS: BP 112/72
[2017-03-13 14:55] LABS: DAU SCREEN DISCLAIMER
== END 2017-03-13 15:00 | disposition home or self-care (01) | DRG 92 ==
LOC: ED 03:24 → EDIP 04:46 → 3NE 06:38
PROVIDERS: ADMIT Internal Medicine
DX: G92 Toxic encephalopathy (principal); E44.0 Moderate protein-calorie malnutrition; E87.1 Hypo-osmolality and hyponatremia; J96.11 Chronic respiratory failure with hypoxia; F10.10 Alcohol abuse, uncomplicated; E11.9 Type 2 diabetes mellitus without complications; D64.9 Anemia, unspecified; E66.01 Morbid (severe) obesity due to excess calories; E78.5 Hyperlipidemia, unspecified; I10 Essential (primary) hypertension; T40.605A Adverse effect of unspecified narcotics, initial encounter; T42.6X5A Adverse effect of other antiepileptic and sedative-hypnotic drugs, initial encounter; T48.205A Adverse effect of unspecified drugs acting on muscles, initial encounter; I25.10 Atherosclerotic heart disease of native coronary artery without angina pectoris; I48.0 Paroxysmal atrial fibrillation; J44.9 Chronic obstructive pulmonary disease, unspecified; Z95.5 Presence of coronary angioplasty implant and graft; Z99.81 Dependence on supplemental oxygen; I25.2 Old myocardial infarction; Y92.89 Other specified places as the place of occurrence of the external cause; Z95.1 Presence of aortocoronary bypass graft; Z79.82 Long term (current) use of aspirin; Z79.899 Other long term (current) drug therapy; Z90.49 Acquired absence of other specified parts of digestive tract; Z88.5 Allergy status to narcotic agent; Z79.02 Long term (current) use of antithrombotics/antiplatelets; Z82.49 Family history of ischemic heart disease and other diseases of the circulatory system; Z87.891 Personal history of nicotine dependence; Z68.35 Body mass index [BMI] 35.0-35.9, adult; T40.2X5A Adverse effect of other opioids, initial encounter; T48.1X5A Adverse effect of skeletal muscle relaxants [neuromuscular blocking agents], initial encounter
CPT/HCPCS: 36415; 36600; 70450; 71010; 80053; 80307; 80329; 81003; 82140; 82803; 82962; 84484; 85025; 93005; 99285; J1650; G0480; J7030

== ENCOUNTER → 2017-08-16 | Outpatient (CLI) | payer MEDICARE ==
[~2017-08-16] MED LIST changes: -ALBU8.5H3 INH; +ALBU8.5H8 INH; -CLOP75TA22 PO; +CLOP75TA52 PO; +NITR0.4T28 SL; -NITR0.4T8 SL; +OXYC5CAP2 PO; -OXYC5CAP4 PO; +REGADENOSON 0.4 MG/5 ML SYRINGE ONE
== END | disposition home or self-care (01) ==
LOC: CFH 07:56
PROVIDERS: ATTEND Internal Medicine Cardiovascular Disease
DX: J98.11 Atelectasis (principal); R07.9 Chest pain, unspecified
CPT/HCPCS: 71250; 93306; J2785

== ENCOUNTER → 2017-09-15 | Outpatient (CLI) | payer MEDICARE | END | disposition home or self-care (01) | LOC: CFH 07:14 | PROVIDERS: ATTEND Internal Medicine Cardiovascular Disease | DX: R07.9 Chest pain, unspecified (principal) | CPT/HCPCS: 78452; 93017; A9502; J2785 ==

== ENCOUNTER → 2017-09-20 | Outpatient (CLI) | payer MEDICARE ==
[~2017-09-20] MED LIST changes: +OMNIPAQUE 350 MG/ML, 100ML BOTTLE ONE; -REGADENOSON 0.4 MG/5 ML SYRINGE ONE
== END | disposition home or self-care (01) ==
LOC: CFH 08:25
PROVIDERS: ATTEND Family Medicine
DX: N28.1 Cyst of kidney, acquired (principal); K57.30 Diverticulosis of large intestine without perforation or abscess without bleeding; Z95.1 Presence of aortocoronary bypass graft; Z98.890 Other specified postprocedural states; Z90.49 Acquired absence of other specified parts of digestive tract
CPT/HCPCS: 74177; Q9967

== ENCOUNTER → 2018-02-07 | Outpatient (CLI) | payer MEDICARE ==
[~2018-02-07] MED LIST changes: -OMNIPAQUE 350 MG/ML, 100ML BOTTLE ONE
== END | disposition home or self-care (01) ==
LOC: LAB 08:14
PROVIDERS: ATTEND Physician Assistant
DX: R97.20 Elevated prostate specific antigen [PSA] (principal)
CPT/HCPCS: 36415; 84153

== ENCOUNTER → 2018-02-07 | Outpatient (CLI) | payer MEDICARE | LOC: RAD 08:06 | PROVIDERS: ATTEND Nurse Practitioner Family | DX: K76.0 Fatty (change of) liver, not elsewhere classified (principal); N28.1 Cyst of kidney, acquired | CPT/HCPCS: 74241; 76700 ==

== ENCOUNTER 2019-03-06 11:10 | Outpatient (CLI) | payer MEDICARE ==
[~2019-03-06 11:10] MED LIST changes: +AMLO-150 PO; -AMLO5TAB2 PO; -FLUT16SP NAS; +FLUT16SP24 NAS; -GABA800T2 PO; +GABA800T5 PO; +METF500T17 PO; -METF500T4 PO; +REGADENOSON 0.4 MG/5 ML SYRINGE ONE
== END 2019-03-06 23:59 | disposition home or self-care (01) ==
LOC: CFH 11:10
PROVIDERS: ATTEND Internal Medicine Cardiovascular Disease
DX: Z02.9 Encounter for administrative examinations, unspecified (principal)
CPT/HCPCS: J2785

== ENCOUNTER 2019-04-13 07:32 | Outpatient (CLI) | payer MEDICARE | END 2019-04-13 23:59 | disposition home or self-care (01) | LOC: CFH 07:32 | PROVIDERS: ATTEND Internal Medicine Cardiovascular Disease | DX: I25.10 Atherosclerotic heart disease of native coronary artery without angina pectoris (principal); I10 Essential (primary) hypertension; R06.02 Shortness of breath | CPT/HCPCS: 78452; 93017; A9502; J2785 ==

== ENCOUNTER → 2020-06-03 | Outpatient (CLI) | payer MEDICARE ==
[~2020-06-03] MED LIST changes: +LISI1TAB20 PO; -LISI1TAB7 PO; -REGADENOSON 0.4 MG/5 ML SYRINGE ONE
== END | disposition home or self-care (01) ==
LOC: CFH 07:43
PROVIDERS: ATTEND Internal Medicine Cardiovascular Disease
DX: I08.0 Rheumatic disorders of both mitral and aortic valves (principal); I25.10 Atherosclerotic heart disease of native coronary artery without angina pectoris; E78.5 Hyperlipidemia, unspecified; I10 Essential (primary) hypertension; E11.9 Type 2 diabetes mellitus without complications; Z87.891 Personal history of nicotine dependence
CPT/HCPCS: 93306

== ENCOUNTER 2020-06-06 08:15 | Outpatient (CLI) | payer MEDICARE ==
[2020-06-06 09:42] LABS: BASOPHILS # (AUTO) 0.02 x10^3/uL (0-0.1); BASOPHILS % (AUTO) 0 % (0-1); EOSINOPHILS # (AUTO) 0.21 x10^3/uL (0-0.4); EOSINOPHILS % (AUTO) 4 % (1-7); LYMPHOCYTES % (AUTO) 15 % (22-44); MD NO; MEAN CORPUSCULAR HEMOGLOBIN 31.2 pg (27.5-34.5); MEAN CORPUSCULAR HGB CONC 32.7 g/dL (33.2-36.2); MEAN CORPUSCULAR VOLUME 95.3 fL (81-97); MEAN PLATELET VOLUME 9.5 fL (7.4-10.4); MONOCYTES # (AUTO) 0.55 x10^3/uL (0.2-0.8); MONOCYTES % (AUTO) 10 % (2-9); NEUTROPHILS % (AUTO) 71 % (42-75); PLATELET COUNT 144 x10^3/uL (130-400); RED BLOOD COUNT 4.66 x10^6/uL (4.38-5.82); RED CELL DISTRIBUTION WIDTH 14.6 % (9.4-14.8)
[2020-06-06 09:49] LABS: ANION GAP 3 mmol/L (5-15); CALCIUM 8.8 mg/dL (8.5-10.1); CHLORIDE 106 mmol/L (98-107)
[2020-06-06 09:53] LABS: ALANINE AMINOTRANSFERASE 38 U/L (12-78); ALKALINE PHOSPHATASE 66 U/L (45-117); BILIRUBIN,TOTAL 0.5 mg/dL (0.2-1.0); CREATININE 0.97 mg/dL (0.7-1.3); TOTAL PROTEIN 6.7 g/dL (6.4-8.2)
[2020-06-06] MEDS ORDERED: AMIO200T42 PO (10:39)
[2020-06-06] MEDS ORDERED: METO25TA35 PO (10:39)
[2020-06-06] MEDS ORDERED: FURO40TA6 PO (10:39)
== END 2020-06-06 23:59 | disposition home or self-care (01) ==
LOC: STAR 08:15
PROVIDERS: ATTEND Orthopaedic Surgery
DX: Z01.818 Encounter for other preprocedural examination (principal); S83.282A Other tear of lateral meniscus, current injury, left knee, initial encounter; M25.562 Pain in left knee; X58.XXXA Exposure to other specified factors, initial encounter; Y93.89 Activity, other specified; Y92.89 Other specified places as the place of occurrence of the external cause; Y99.8 Other external cause status
CPT/HCPCS: 36415; 80053; 85025; 93005

== ENCOUNTER 2020-06-12 10:06 | Day surgery (SDC) | payer MEDICARE ==
[~2020-06-12] VITALS: Ht 177.8 cm; Wt 109.5 kg
[~2020-06-12 10:06] MED LIST changes: +FURO40TA6 PO; +METO25TA35 PO
[2020-06-12] MEDS ORDERED: LACTATED RINGERS 1,000 ML IV SCH (10:55)
[2020-06-12] MEDS ORDERED: CHLORHEXIDINE 15 ML UDC MM ONE (11:00)
[2020-06-12 11:03] VITALS: BP 194/82
[2020-06-12] MEDS ORDERED: LIDOCAINE/PF 1%-EPI 1:200K, 30 ML ONE (11:12)
[2020-06-12] MEDS ORDERED: ROPIvacaine/PF 0.5%, 30 ML ONE (11:12)
[2020-06-12] MEDS ORDERED: morphine SULFATE 10 MG/ML, 1ML IVPush PRN (12:00)
[2020-06-12] MEDS ORDERED: ONDANSETRON 2MG/ML, 2ML IVPush PRN (12:00)
[2020-06-12] MEDS ORDERED: ACETAMINOPHEN 325 MG TABLET PO PRN (12:00)
[2020-06-12] MEDS ORDERED: HYDROmorphone 1 MG/ML, 1ML INJ IVPush PRN (12:00)
[2020-06-12] MEDS ORDERED: MEPERIDINE/PF 25MG/0.5ML IVPush PRN (12:00)
[2020-06-12] MEDS ORDERED: OXYcodone 5 MG/5 ML ORAL.SOL UDC PO PRN (12:00)
[2020-06-12] MEDS ORDERED: hydrALAzine 20 MG/ML, 1ML IV PRN (12:00)
[2020-06-12] MEDS ORDERED: METOPROLOL 1 MG/ML, 5ML IV PRN (12:00)
[2020-06-12] MEDS ORDERED: LABETALOL 5MG/ML, 20ML IV PRN (12:00)
[2020-06-12] MEDS ORDERED: PROPOFOL 10 MG/ML, 20ML ONE (12:11)
[2020-06-12] MEDS ORDERED: METOPROLOL 1 MG/ML, 5ML ONE ×2 (12:11)
[2020-06-12] MEDS ORDERED: CEFAZOLIN 1,000 MG ONE (12:11)
[2020-06-12] MEDS ORDERED: LIDOCAINE 1%-EPI 1:100K, 30ML INFIL ONE (12:15)
[2020-06-12] MEDS ORDERED: ROPIvacaine/PF 0.5%, 30 ML INFIL ONE (12:15)
[2020-06-12] MEDS ORDERED: PROMETHAZINE 25 MG/ML, 1ML ONE (12:57)
[2020-06-12] MEDS ORDERED: FENTANYL PF 100 MCG/2ML ONE (12:57)
[2020-06-12] MEDS: FENTANYL PF 100 MCG/2ML IV PRN ×3 (12:59→13:29)
[2020-06-12] MEDS ORDERED: PROMETHAZINE 25 MG/ML, 1ML IV PRN (13:30)
[2020-06-12] MEDS ORDERED: OXYcodone 5 MG/5 ML ORAL.SOL UDC ONE (13:31)
[2020-06-12] MEDS ORDERED: ACETAMINOPHEN 650 MG/20.3 ML UDC ONE (13:31)
== END 2020-06-12 16:05 | disposition home or self-care (01) ==
LOC: OUT 10:06
PROVIDERS: ATTEND Orthopaedic Surgery
DX: S83.232A Complex tear of medial meniscus, current injury, left knee, initial encounter (principal); Z20.828 Contact with and (suspected) exposure to other viral communicable diseases; S83.282A Other tear of lateral meniscus, current injury, left knee, initial encounter; M22.42 Chondromalacia patellae, left knee; M65.341 Trigger finger, right ring finger; I25.10 Atherosclerotic heart disease of native coronary artery without angina pectoris; I10 Essential (primary) hypertension; E11.9 Type 2 diabetes mellitus without complications; J44.9 Chronic obstructive pulmonary disease, unspecified; F41.9 Anxiety disorder, unspecified; E78.5 Hyperlipidemia, unspecified; Z79.02 Long term (current) use of antithrombotics/antiplatelets; Z79.82 Long term (current) use of aspirin; Z79.84 Long term (current) use of oral hypoglycemic drugs; Z79.899 Other long term (current) drug therapy; Z87.891 Personal history of nicotine dependence; Z88.5 Allergy status to narcotic agent; Z95.5 Presence of coronary angioplasty implant and graft; Z99.81 Dependence on supplemental oxygen; Z82.49 Family history of ischemic heart disease and other diseases of the circulatory system
CPT/HCPCS: 29880; 82962; 87635; J0690; J2405; J2550; J2704; J2795; J3010; J3490; J7120

== ENCOUNTER → 2020-12-23 | Outpatient (CLI) | payer MEDICARE ==
[~2020-12-23] MED LIST changes: +CLOP75TA PO; -ESCI20TA PO; +ESCI20TA8 PO; +LISI40TA9 PO; -OXYC5TAB3 PO; +OXYC5TAB98 PO; +TRAZ-175 PO
== END | disposition home or self-care (01) ==
LOC: STAR 13:29
PROVIDERS: ATTEND Surgery
DX: Z01.812 Encounter for preprocedural laboratory examination (principal); Z20.822 Contact with and (suspected) exposure to COVID-19; I65.21 Occlusion and stenosis of right carotid artery
CPT/HCPCS: 36415; 80053; 85025; 93005; U0003